=== PATIENT | female | born 1985 | race American Indian/Alaskan Native ===

== ENCOUNTER 2017-03-17 13:27 | Emergency (ER) | payer MEDICAID ==
[2017-03-17 14:23] VITALS: BP 109/77
[2017-03-17 14:42] LABS: Bilirubin,Urine NEG (Negative); Blood,Urine SM (Negative); Ketones,Urine NEG (Negative); Leukocyte Esterase,Urine NEG (Negative); Mucus,Urine FEW /HPF; Nitrite,Urine NEG (Negative); Protein,Urine <15 mg/dL mg/dL (Negative); RBC,Urine < 1.0 /HPF (0.0-6.0); Urobilinogen,Urine < 2.0 mg/dL (<2.0)
[2017-03-17] MEDS ORDERED: MOTRIN PO ONE (16:40)
--- NOTE | 2017-03-17 16:44 | Emergency Department Report ---
ED General Adult HPI - General Chief complaint: Abdominal Pain Stated complaint: ABD PAIN Time Seen by Provider: 03/17/17 16:27 Source: patient Mode of arrival: Ambulatory Limitations: No Limitations - History of Present Illness Initial comments: PT c/o abd pain x 2 weeks. pt states the abd pain is lower and feels like period cramps, but she missed her last cycle. PT states 2 days after missing her cycle, she had negative home test. PT states that she is concerned that she may be . PT is sexually active and does not use condoms consistently. PT denies dysuria and vaginal discharge. PT denies recent hx of STD or any hx of PID. PT does have a hx of breast CA. Complaint: abd pain Onset/Timin -: Gradual, week(s) Location: abdomen Severity scale (0 -10): 5 Quality: other (crampy ) Consistency: constant Improves with: none Worsens with: none Associated Symptoms: loss of appetite. denies: chest pain, cough, fever/chills , nausea/vomiting - Related Data Home Medications Medication Instructions Recorded Confirmed Last Taken Antibiotic Name Unknown 01/25/15 01/25/15 Unknown Previous Rx's Medication Instructions Recorded Last Taken Type Ondansetron [Zofran TAB] 4 mg PO Q8HR PRN #20 tablet 06/21/15 Unknown Rx oxyCODONE /ACETAMINOPHEN [Percocet 1 - 2 tab PO Q6HR PRN #20 tablet 06/21/15 Unknown Rx 5/325 mg] Sulfamethoxazole/Trimethoprim 1 each PO BID #20 tablet 03/18/16 Unknown Rx [Bactrim DS TAB] Benzonatate [Tessalon Perles] 100 mg PO Q8HR #10 capsule 10/28/16 Unknown Rx Cetirizine HCl [ZyrTEC] 10 mg PO DAILY #30 capsule 10/28/16 Unknown Rx Ibuprofen [Motrin 800 MG tab] 1 tab PO Q8HR PRN #30 tablet 10/28/16 Unknown Rx Allergies Allergy/AdvReac Type Severity Reaction Status Date / Time nalbuphine HCl [From Nubain] Allergy Unknown Verified 10/25/14 19:15 ED Review of Systems ROS: Stated complaint: ABD PAIN Other details as noted in HPI Comment: All other systems reviewed and negative Constitutional: denies: chills, fever Respiratory: denies: cough Cardiovascular: denies: chest pain Gastrointestinal: abdominal pain Genitourinary: abnormal menses. denies: dysuria, frequency, discharge Neurological: other (pt states that if she does not eat, she will feel light headed but symptoms improve with eating. ). denies: headache, vertigo ED Past Medical Hx - Past Medical History Previous Medical History?: Yes Hx Hypertension: No Hx Heart Attack/AMI: No Hx Congestive Heart Failure: No Hx Diabetes: No Hx GERD: Yes (stomach ulcers) Hx Liver Disease: No Hx Renal Disease: No Hx of Cancer: Yes (Breast CA DX 2013 ) Hx Seizures: No Hx Asthma: No Hx COPD: No Additional medical history: stomach ulcer, Vaginal delivery x 1 - Surgical History Past Surgical History?: Yes Hx Breast Surgery: Yes (Gilberto. breast) Additional Surgical History: MASTECTOMY. x 1 - Social History Smoking Status: Current Every Day Smoker Substance Use Type: None - Medications Home Medications: Home Medications Medication Instructions Recorded Confirmed Last Taken Type Antibiotic Name Unknown 01/25/15 01/25/15 Unknown History Ondansetron [Zofran TAB] 4 mg PO Q8HR PRN #20 tablet 06/21/15 Unknown Rx oxyCODONE /ACETAMINOPHEN [Percocet 1 - 2 tab PO Q6HR PRN #20 tablet 06/21/15 Unknown Rx 5/325 mg] Sulfamethoxazole/Trimethoprim 1 each PO BID #20 tablet 03/18/16 Unknown Rx [Bactrim DS TAB] Benzonatate [Tessalon Perles] 100 mg PO Q8HR #10 capsule 10/28/16 Unknown Rx Cetirizine HCl [ZyrTEC] 10 mg PO DAILY #30 capsule 10/28/16 Unknown Rx Ibuprofen [Motrin 800 MG tab] 1 tab PO Q8HR PRN #30 tablet 10/28/16 Unknown Rx ED Physical Exam - General Limitations: No Limitations General appearance: alert, in no apparent distress - Head Head exam: Present: atraumatic, normocephalic, normal inspection - Eye Eye exam: Present: normal appearance, PERRL, EOMI. Absent: conjunctival injection - ENT ENT exam: Present: normal exam, normal external ear exam - Neck Neck exam: Present: normal inspection, full ROM - Respiratory Respiratory exam: Present: normal lung sounds bilaterally. Absent: respiratory distress, wheezes, chest wall tenderness - Cardiovascular Cardiovascular Exam: Present: regular rate, normal rhythm, normal heart sounds - GI/Abdominal GI/Abdominal exam: Present: soft, normal bowel sounds. Absent: distended, tenderness - Extremities Exam Extremities exam: Present: normal inspection, full ROM - Back Exam Back exam: Present: normal inspection, full ROM. Absent: tenderness, CVA tenderness (R), CVA tenderness (L), muscle spasm, paraspinal tenderness, vertebral tenderness - Neurological Exam Neurological exam: Present: alert, oriented X3, normal gait - Psychiatric Psychiatric exam: Present: normal affect, normal mood - Skin Skin exam: Present: warm, dry, intact, normal color ED Course Vital Signs 03/17/17 14:20 Temperature 98.2 F Pulse Rate 61 Respiratory 18 Rate Blood Pressure 109/77 O2 Sat by Pulse 100 Oximetry - Reevaluation(s) Reevaluation #1: 03/17/17 16:45 PT aware of UA and test results. PT gives verbal consent for pelvic exam. Reevaluation #2: 03/17/17 18:31 PT no longer in her room, pt not in US. Assumed pt left after learning of negative test. - Pulse Oximetry Interpretation Digit-Finger Initial Pulse Oximetry Readin Actions Taken: none ED Medical Decision Making - Differential Diagnosis , uti, pid, cervicitis, ovarian cyst Critical care attestation.: If time is entered above; I have spent that time in minutes in the direct care of this critically ill patient, excluding procedure time. ED Disposition Clinical Impression: Amenorrhea, Lower abdominal pain Disposition: ELOPED Is pt being admited?: No Condition: Undetermined Time of Disposition: 18:33
== END 2017-03-17 17:00 | disposition left against medical advice (07) ==
LOC: ED 13:27
DX: N91.2 Amenorrhea, unspecified (principal); R10.30 Lower abdominal pain, unspecified; K21.9 Gastro-esophageal reflux disease without esophagitis; F17.200 Nicotine dependence, unspecified, uncomplicated; Z85.3 Personal history of malignant neoplasm of breast; Z88.8 Allergy status to other drugs, medicaments and biological substances
CPT/HCPCS: 81001; 81025; 99283

== ENCOUNTER 2017-08-15 13:47 | Outpatient (CLI) | payer OTHER ==
--- NOTE | 2017-08-19 09:28 | Ultrasound Report ---
Sonogram right and left breast: History:N69.9/N64.4 Findings: Bilaterally symmetric expanders are identified with fluid. No debris is found. No solid masses noted. Deformity of the anterior aspect of right and left drill rig operator is probably related to scar tissue. Focal area of fluid collection anterior to the left drill rig operator is probably normal or seroma. Impression: Findings as detailed above. Clinical correlation and if necessary followup or MRI may be advised.
== END 2017-08-15 13:48 | disposition home or self-care (01) ==
LOC: US 13:47
DX: N64.4 Mastodynia (principal)

== ENCOUNTER 2017-10-16 09:36 | Outpatient (CLI) | payer OTHER ==
--- NOTE | 2017-10-16 18:01 | XRay Report ---
FINAL REPORT EXAM: XR SPINE LUMBOSACRAL 2-3V HISTORY: LUMBAR SACRAL PAIN,BREAST CANCER,BONE PAIN TECHNIQUE: AP pelvis, cervical, thoracic, and lumbosacral spine series were performed Four view cervical spine, three views thoracic spine, three views lumbar spine, AP pelvis FINDINGS: Normal alignment of the cervical vertebral bodies. C1 lateral masses align normally on C2. Odontoid is incompletely assessed. There are no focal bony lytic or blastic lesions. Left chemo port. Normal alignment of the thoracic vertebral bodies. Minimal scoliosis. Pedicles are intact. Normal paraspinal line. The imaged lungs are unremarkable. Lumbar vertebral bodies are normally aligned. Disc spaces are maintained. No focal lytic or blastic lesions of the thoracic or lumbar spine. Incidental identified S1 posterior fusion defect. Well corticated left transverse process bone chip measuring 12 millimeters at the L1 vertebral bodies appears chronic. SI joints are. Sacral arches are intact. No focal lytic or blastic lesion of the bony pelvis. Mild right SI joint lipping. IMPRESSION: No focal bony lesion to suggest metastatic disease. Recommend correlation with bone scan.
--- NOTE | 2017-10-16 18:04 | XRay Report ---
FINAL REPORT EXAM: XR SPINE THORACIC 2V No focal bony lesion to suggest metastatic disease. Recommend correlation with bone scan. HISTORY: BACK PAIN,BREAST CANCER,BONE METS TECHNIQUE: AP pelvis, cervical, thoracic, and lumbosacral spine series were performed Four view cervical spine, three views thoracic spine, three views lumbar spine, AP pelvis FINDINGS: Normal alignment of the cervical vertebral bodies. C1 lateral masses align normally on C2. Odontoid is incompletely assessed. There are no focal bony lytic or blastic lesions. Left chemo port. Normal alignment of the thoracic vertebral bodies. Minimal scoliosis. Pedicles are intact. Normal paraspinal line. The imaged lungs are unremarkable. Lumbar vertebral bodies are normally aligned. Disc spaces are maintained. No focal lytic or blastic lesions of the thoracic or lumbar spine. Incidental identified S1 posterior fusion defect. Well corticated left transverse process bone chip measuring 12 millimeters at the L1 vertebral bodies appears chronic. SI joints are. Sacral arches are intact. No focal lytic or blastic lesion of the bony pelvis. Mild right SI joint lipping. IMPRESSION: No focal bony lesion to suggest metastatic disease. Recommend correlation with bone scan.
--- NOTE | 2017-10-16 18:04 | XRay Report ---
FINAL REPORT EXAM: XR SPINE CERVICAL 2-3V HISTORY: NECK PAIN,BREAST CANCER,BONE METS TECHNIQUE: AP pelvis, cervical, thoracic, and lumbosacral spine series were performed Four view cervical spine, three views thoracic spine, three views lumbar spine, AP pelvis FINDINGS: Normal alignment of the cervical vertebral bodies. C1 lateral masses align normally on C2. Odontoid is incompletely assessed. There are no focal bony lytic or blastic lesions. Left chemo port. Normal alignment of the thoracic vertebral bodies. Minimal scoliosis. Pedicles are intact. Normal paraspinal line. The imaged lungs are unremarkable. Lumbar vertebral bodies are normally aligned. Disc spaces are maintained. No focal lytic or blastic lesions of the thoracic or lumbar spine. Incidental identified S1 posterior fusion defect. Well corticated left transverse process bone chip measuring 12 millimeters at the L1 vertebral bodies appears chronic. SI joints are. Sacral arches are intact. No focal lytic or blastic lesion of the bony pelvis. Mild right SI joint lipping. IMPRESSION: No focal bony lesion to suggest metastatic disease. Recommend correlation with bone scan
--- NOTE | 2017-10-17 07:55 | Nuclear Medicine Report ---
BONE SCAN: History: Lumbosacral pain, breast cancer. Comparison: Bone scan dated 07/19/14. X-rays of the C-spine, T-spine, L-spine and pelvis performed 10/16/17. After injection of isotope, gamma camera imaging of the bony system was done. There is a normal uptake of isotope throughout the bony structures without areas of significantly increased or decreased uptake. Normal uptake in the urinary system is seen. IMPRESSION: Unremarkable bone scan. No evidence for trauma, significant degenerative uptake or metastatic disease.
== END 2017-10-16 09:37 | disposition home or self-care (01) ==
LOC: NM 09:36
DX: C50.911 Malignant neoplasm of unspecified site of right female breast (principal); M41.82 Other forms of scoliosis, cervical region; M54.5 Low back pain; M54.6 Pain in thoracic spine
CPT/HCPCS: 72040; 72070; 72100; 72170; 78306; 81025; A9503

== ENCOUNTER 2018-03-26 09:14 | Day surgery (SDC) | payer OTHER ==
[~2018-03-26 09:14] MED LIST: ANCEF/STERILE WATER 2 GM/20 ML IV NR; LACTATED RINGERS 1,000 ML IV SCH
[2018-03-26] MEDS ORDERED: NACL BACTERIOSTATIC INFILTRATI ONE (10:19)
--- NOTE | 2018-03-26 10:21 | Anesthesia Day of Surgery ---
Anesthesia Day of Surgery - Day of Surgery Patient Examined: Yes Patient H&P Reviewed: Yes Patient is NPO: Yes
--- NOTE | 2018-03-26 10:22 | Anesthesia Consultation ---
Anesthesia Consult and Med Hx Date of service: 03/26/18 - Airway Anesthetic Teeth Evaluation: Good ROM Head & Neck: Adequate Mental/Hyoid Distance: Adequate Mallampati Class: Class I Intubation Access Assessment: Good - Cardiac Exam Cardiac Exam: RRR - Pre-Operative Health Status ASA Pre-Surgery Classification: ASA2 Proposed Anesthetic Plan: General - Pulmonary Hx Smoking: Yes (CIGARETTES , 1/2 PPD ) Hx Asthma: No COPD: No Hx Pneumonia: No Hx Sleep Apnea: No - Cardiovascular System Hx Hypertension: No Hx Coronary Artery Disease: No Hx Heart Attack/AMI: No Hx Angina: No - Central Nervous System Hx Seizures: No CVA: No Hx Back Pain: Yes (scoliosis) Hx Psychiatric Problems: No - Gastrointestinal Hx Ulcer: Yes (PUD) - Endocrine Hx Renal Disease: No Hx End Stage Renal Disease: No Hx Liver Disease: No Hx Non-Insulin Dependent Diabetes: No - Hematic Hx Anemia: No - Other Systems Hx Alcohol Use: No Hx Cancer: Yes
[2018-03-26] MEDS ORDERED: XYLOCAINE 1%/ EPI 1:100,000 INFILTRATI ONE ×4 (10:24→11:51)
[2018-03-26] MEDS ORDERED: MARCAINE 0.25% INFILTRATI ONE ×4 (10:24→11:51)
[2018-03-26] MEDS ORDERED: DIPRIVAN 10 MG/ML IV ONE ×2 (10:32→11:52)
[2018-03-26] MEDS ORDERED: XYLOCAINE CARDIAC IV ONE (10:32)
[2018-03-26] MEDS ORDERED: VERSED IV NR (11:00)
[2018-03-26] MEDS ORDERED: DILAUDID ONE (11:40)
[2018-03-26] MEDS ORDERED: NACL 0.9% IR ONE (12:00)
[2018-03-26] MEDS ORDERED: DEMEROL IV PRN (12:10)
[2018-03-26] MEDS ORDERED: ZOFRAN IV PRN (12:10)
[2018-03-26] MEDS ORDERED: DILAUDID IV PRN (12:10)
--- NOTE | 2018-03-26 12:19 | Discharge Summary ---
Short Stay Discharge Plan Activity: no restrictions Diet: regular Wound: open to air, other (use ice pack off and on today; may shower in 2 days) Special Instructions: other (Tylenol or Motrin as needed for pain) Follow up with: PRIMARY CAREMD [Primary Care Provider] - 7 Days MAXWELL KELLY MD [Staff Physician] - 7 Days
--- NOTE | 2018-03-26 12:21 | Post Operative Note ---
Date of procedure: 03/26/18 Pre-op diagnosis: port no longer required; malfunctioning port Post-op diagnosis: same Findings: tip removed intact Procedure: removal of vascular access port Anesthesia: MAC Surgeon: MAXWELL KELLY Estimated blood loss: none Pathology: none Specimen disposition: discarded Condition: stable Disposition: PACU
--- NOTE | 2018-03-26 12:49 | Operative Report ---
PREOPERATIVE DIAGNOSES: Malfunctioning port, port no longer required. POSTOPERATIVE DIAGNOSES: Malfunctioning port, port no longer required. PROCEDURE: Removal of vascular access port. TYPE OF ANESTHESIA: Local MAC. SURGEON: Shayla Lindsay MD [facility] NURSE PSYCHOTHERAPIST: None. ESTIMATED BLOOD LOSS: None. INDICATIONS: This is a 32-year-old woman who had a vascular access port on the left internal jugular vein and the dome sitting on the left chest wall for chemotherapy for breast cancer. She no longer requires a port and wishes to have it removed. FINDINGS: The tip was removed intact. DESCRIPTION OF PROCEDURE: The patient was brought to the operating room, laid supine on the table. After adequate IV sedation was obtained, the left neck and chest wall were prepped and draped in usual fashion. Initially 1:1 mixture of 0.25% Marcaine and 1% lidocaine was infiltrated in a field block anesthesia fashion along the vascular access port in the left chest wall. The previous incision was then incised. Dissection was carried down. The catheter was visualized, grasped, and removed intact from the neck. Next, the dome was freed using blunt dissection. The sutures were snipped. They were holding it in place and the dome was removed as well. Hemostasis was ascertained. Wound was irrigated. The subcutaneous tissues were reapproximated using 3-0 Vicryl and skin was reapproximated using 4-0 Monocryl in running subcuticular fashion. The wound was dressed with skin glue. The patient tolerated the procedure. There were no immediate complications. All counts reported as correct. JOB# [id number] BOBBY/JEFERSON
[2018-03-26] MEDS ORDERED: BENADRYL IV SCH (12:55)
[2018-03-26 14:06] VITALS: BP 101/68
--- NOTE | 2018-03-26 18:25 | Post Anesthesia Evaluation ---
- Post Anesthesia Evaluation Patient Participated: Yes Airway Patent: Yes Stable Respiratory Function: Yes Nausea/Vomiting: No Temp > 96.8F: Yes Pain Manageable: Yes Adequeate Hydration: Yes Anesthesia Complications: No
== END 2018-03-26 13:50 | disposition home or self-care (01) ==
LOC: OR 09:14
PROVIDERS: ATTEND Surgery
DX: Z45.2 Encounter for adjustment and management of vascular access device (principal); K27.9 Peptic ulcer, site unspecified, unspecified as acute or chronic, without hemorrhage or perforation; F17.210 Nicotine dependence, cigarettes, uncomplicated; F32.9 Major depressive disorder, single episode, unspecified; Z85.3 Personal history of malignant neoplasm of breast; Z92.21 Personal history of antineoplastic chemotherapy; Z98.890 Other specified postprocedural states; Z90.13 Acquired absence of bilateral breasts and nipples
CPT/HCPCS: 36590; 81025; J0690; J1170; J1200; J2001; J2250; J2704; J7120

== ENCOUNTER 2021-07-07 16:19 | Emergency (ER) | payer SELFPAY ==
[2021-07-07 17:12] VITALS: BP 103/63
--- NOTE | 2021-07-07 18:21 | Emergency Department Report ---
ED General Adult HPI - General Chief complaint: Urogenital-Female Stated complaint: CHEST PAIN/BREAST EX MOVING TO CHEST Time Seen by Provider: 07/07/21 18:12 Source: patient Mode of arrival: Ambulatory Limitations: No Limitations - History of Present Illness Initial comments: pt is a 36-year-old female presents emergency room complaints of left-sided b reast pain and left-sided chest pain that began a week ago. Patient states that she has had breast project finance analyst present on this side for approximately 7 years. She states 7 years ago she had a double mastectomy. She states that she was supposed to have an implant placed but due to insurance loss she was unable to have this performed and she still has project finance analyst in. She states that she also completed radiation therapy and chemotherapy. She states that she has been in remission for 5 years. He states that she has not seen her breast surgeon in over a year. She states that she is also been having some mild chills. she denies any fever, nausea, vomiting, diarrhea, leg swelling, shortness of breath, pleuritic pain. She has not been vaccinated for COVID-19. Past medical history. She has an allergy to nalbuphine - Related Data Previous Rx's Medication Instructions Recorded Last Taken Type Ondansetron [Zofran TAB] 4 mg PO Q8HR PRN #20 tablet 06/21/15 3 Weeks Ago Rx ~03/05/18 oxyCODONE /ACETAMINOPHEN [Percocet 1 - 2 tab PO Q6HR PRN #20 tablet 06/21/15 3 Weeks Ago Rx 5/325 mg] ~03/05/18 Naproxen 375 mg PO BID PRN #20 tablet 07/07/21 Unknown Rx traMADoL [Ultram 50 MG tab] 50 mg PO Q6HR PRN #12 tablet 07/07/21 Unknown Rx Allergies Allergy/AdvReac Type Severity Reaction Status Date / Time nalbuphine HCl [From Nubain] Allergy Unknown Verified 10/25/14 19:15 ED Review of Systems ROS: Stated complaint: CHEST PAIN/BREAST EX MOVING TO CHEST Other details as noted in HPI Comment: All other systems reviewed and negative ED Past Medical Hx - Past Medical History Previous Medical History?: Yes Hx Hypertension: No Hx Heart Attack/AMI: No Hx Congestive Heart Failure: No Hx Diabetes: No Hx GERD: Yes (stomach ulcers) Hx Liver Disease: No Hx Renal Disease: No Hx Seizures: No Hx Asthma: No Hx COPD: No Additional medical history: stomach ulcer, Vaginal delivery x 1 - Surgical History Past Surgical History?: Yes Hx Breast Surgery: Yes (BILATERAL BREAST RECONSTRUCTION SURGERY) Additional Surgical History: MASTECTOMY. x 1 - Social History Smoking Status: Never Smoker Substance Use Type: None - Medications Home Medications: Home Medications Medication Instructions Recorded Confirmed Last Taken Type Ondansetron [Zofran TAB] 4 mg PO Q8HR PRN #20 tablet 06/21/15 03/26/18 3 Weeks Ago Rx ~03/05/18 oxyCODONE /ACETAMINOPHEN [Percocet 1 - 2 tab PO Q6HR PRN #20 tablet 06/21/15 03/26/18 3 Weeks Ago Rx 5/325 mg] ~03/05/18 Naproxen 375 mg PO BID PRN #20 tablet 07/07/21 Unknown Rx traMADoL [Ultram 50 MG tab] 50 mg PO Q6HR PRN #12 tablet 07/07/21 Unknown Rx ED Physical Exam - General Limitations: No Limitations General appearance: alert, in no apparent distress - Head Head exam: Present: atraumatic, normocephalic - Eye Eye exam: Present: normal appearance - ENT ENT exam: Present: mucous membranes moist - Respiratory Respiratory exam: Present: normal lung sounds bilaterally, chest wall tenderness (mild ttp to the left medial chest wall where an project finance analyst is present, no erythema, no edema, no increased warmth, manager electrical: Dr. Vizcarra). Absent: respiratory distress, wheezes, rales, rhonchi, stridor, accessory muscle use, decreased breath sounds, prolonged expiratory - Cardiovascular Cardiovascular Exam: Present: regular rate, normal rhythm, normal heart sounds. Absent: systolic murmur, diastolic murmur, rubs, gallop - Neurological Exam Neurological exam: Present: alert, oriented X3 - Psychiatric Psychiatric exam: Present: normal affect, normal mood - Skin Skin exam: Present: warm, dry, intact ED Course Vital Signs 07/07/21 17:00 Temperature 99.0 F Pulse Rate 92 H Respiratory 16 Rate Blood Pressure 103/63 O2 Sat by Pulse 96 Oximetry ED Medical Decision Making - Lab Data Result diagrams: 07/07/21 18:48 07/07/21 18:48 Lab Results 07/07/21 07/07/21 07/07/21 Range/Units 18:48 18:48 18:48 WBC 5.4 (4.5-11.0) K/mm3 RBC 4.04 (3.65-5.03) M/mm3 Hgb 13.5 (10.1-14.3) gm/dl Hct 39.9 (30.3-42.9) % MCV 99 H (79-97) fl MCH 33 H (28-32) pg MCHC 34 (30-34) % RDW 14.0 (13.2-15.2) % Plt Count 187 (140-440) K/mm3 Lymph % (Auto) 40.7 H (13.4-35.0) % [place] % (Auto) 7.3 (0.0-7.3) % Eos % (Auto) 0.9 (0.0-4.3) % Baso % (Auto) 0.5 (0.0-1.8) % Lymph # (Auto) 2.2 (1.2-5.4) K/mm3 [place] # (Auto) 0.4 (0.0-0.8) K/mm3 Eos # (Auto) 0.0 (0.0-0.4) K/mm3 Baso # (Auto) 0.0 (0.0-0.1) K/mm3 Seg Neutrophils % 50.6 (40.0-70.0) % Seg Neutrophils # 2.7 (1.8-7.7) K/mm3 D-Dimer 175.12 (0-234) ng/mlDDU Sodium 135 L (137-145) mmol/L Potassium 4.0 (3.6-5.0) mmol/L Chloride 99.9 (98-107) mmol/L Carbon Dioxide 29 (22-30) mmol/L Anion Gap 10 mmol/L BUN 9 (7-17) mg/dL Creatinine 0.7 (0.6-1.2) mg/dL Estimated GFR > 60 ml/min BUN/Creatinine Ratio 13 % Glucose 77 (65-100) mg/dL Calcium 9.4 (8.4-10.2) mg/dL Total Bilirubin < 0.20 (0.1-1.2) mg/dL AST 13 (5-40) units/L ALT 7 (7-56) units/L Alkaline Phosphatase 73 (35-129) units/L Troponin T < 0.010 (0.00-0.029) ng/mL Total Protein 7.3 (6.3-8.2) g/dL Albumin 4.3 (3.9-5) g/dL Albumin/Globulin Ratio 1.4 % HCG, Quant (0-4) mIU/mL 07/07/21 Range/Units 18:48 WBC (4.5-11.0) K/mm3 RBC (3.65-5.03) M/mm3 Hgb (10.1-14.3) gm/dl Hct (30.3-42.9) % MCV (79-97) fl MCH (28-32) pg MCHC (30-34) % RDW (13.2-15.2) % Plt Count (140-440) K/mm3 Lymph % (Auto) (13.4-35.0) % [place] % (Auto) (0.0-7.3) % Eos % (Auto) (0.0-4.3) % Baso % (Auto) (0.0-1.8) % Lymph # (Auto) (1.2-5.4) K/mm3 [place] # (Auto) (0.0-0.8) K/mm3 Eos # (Auto) (0.0-0.4) K/mm3 Baso # (Auto) (0.0-0.1) K/mm3 Seg Neutrophils % (40.0-70.0) % Seg Neutrophils # (1.8-7.7) K/mm3 D-Dimer (0-234) ng/mlDDU Sodium (137-145) mmol/L Potassium (3.6-5.0) mmol/L Chloride (98-107) mmol/L Carbon Dioxide (22-30) mmol/L Anion Gap mmol/L BUN (7-17) mg/dL Creatinine (0.6-1.2) mg/dL Estimated GFR ml/min BUN/Creatinine Ratio % Glucose (65-100) mg/dL Calcium (8.4-10.2) mg/dL Total Bilirubin (0.1-1.2) mg/dL AST (5-40) units/L ALT (7-56) units/L Alkaline Phosphatase (35-129) units/L Troponin T (0.00-0.029) ng/mL Total Protein (6.3-8.2) g/dL Albumin (3.9-5) g/dL Albumin/Globulin Ratio % HCG, Quant < 2 (0-4) mIU/mL - EKG Data EKG shows normal: sinus rhythm, axis, intervals, QRS complexes Rate: normal - EKG Data 07/07/21 20:14 ST elevation likely from normal early repolarization No STEMI Reviewed by Dr. Carmita MD - Radiology Data Radiology results: report reviewed Ordering Physician: SARANYA DOMINIQUE Date of Service: 07/07/21 Procedure(s): XR chest routine 2V Accession Number(s): [id number] cc: SARANYA DOMINIQUE Fluoro Time In Minutes: CHEST 2 VIEWS INDICATION / CLINICAL INFORMATION: CP. COMPARISON: None available. FINDINGS: SUPPORT DEVICES: None. HEART / MEDIASTINUM: No significant abnormality. LUNGS / PLEURA: No significant pulmonary or pleural abnormality. No pneumothorax. ADDITIONAL FINDINGS: Bilateral breast expanders IMPRESSION: 1. No acute findings. Signer Name: Chino Gunn MD Signed: 07/07/2021 7:09 PM Workstation Name: [id number] Transcribed By: TL Dictated By: Chino Gunn MD Electronically Authenticated By: Chino Gunn MD Signed Date/Time: 07/07/211908 DD/ 07 TD/TT: Print - Medical Decision Making pt is a 36-year-old female presents emergency room complaints of left-sided breast pain and left-sided chest pain that began a week ago. Patient states that she has had breast project finance analyst present on this side for approximately 7 years. She states 7 years ago she had a double mastectomy. She states that she was supposed to have an implant placed but due to insurance loss she was unable to have this performed and she still has project finance analyst in. She states that she also completed radiation therapy and chemotherapy. She states that she has been in remission for 5 years. He states that she has not seen her breast surgeon in over a year. She states that she is also been having some mild chills. she de nies any fever, nausea, vomiting, diarrhea, leg swelling, shortness of breath, pleuritic pain. She has not been vaccinated for COVID-19. Past medical history. She has an allergy to nalbuphine. Vitals are normal. On exam:mild ttp to the left medial chest wall where an project finance analyst is present, no erythema, no edema, no increased warmth, manager electrical: Dr. Vizcarra. No signs of cellulitis or abscess. EKG with ST elevation likely from normal early repolarization, otherwise normal. Labs are normal. hCG is negative. Troponin is negative. D- dimer is negative. Heart score is 1, low risk for cardiac event. Patient is not having pleuritic pain, shortness of breath, leg swelling, tachycardia, hypo neva, D-dimer is negative, patient is low risk based on Wells criteria for PE, PE unlikely. Patient given prescription for medications. Advised patient Please take medication as prescribed as needed. Follow-up with a primary care doctor. Follow-up with a blocker and polisher gold wheel. Follow-up with a breast surgeon. Return to emergency room for any new or worsening symptoms. Critical care attestation.: If time is entered above; I have spent that time in minutes in the direct care of this critically ill patient, excluding procedure time. ED Disposition Clinical Impression: Breast pain Chest pain Qualifiers: Chest pain type: unspecified Qualified Code(s): R07.9 - Chest pain, unspecified Disposition: 01 HOME / SELF CARE / HOMELESS Is pt being admited?: No Does the pt Need Aspirin: No Condition: Stable Instructions: Nonspecific Chest Pain, Adult Additional Instructions: Please take medication as prescribed as needed. Follow-up with a primary care doctor. Follow-up with a blocker and polisher gold wheel. Follow-up with a breast surgeon. Return to emergency room for any new or worsening symptoms. Prescriptions: Naproxen 375 mg PO BID PRN #20 tablet PRN Reason: pain traMADoL [Ultram 50 MG tab] 50 mg PO Q6HR PRN #12 tablet PRN Reason: Pain , Severe (7-10) Referrals: PRIMARY CARE, [Primary Care Provider] - 3-5 Days GURINDER LEIJA MD [Staff Physician] - 3-5 Days [facility] [Provider Group] - 3-5 Days GLENROY BLACK MD [Staff Physician] - 3-5 Days [facility] [Staff Physician] - 3-5 Days Time of Disposition: 20:15 HEART Score - HEART Score History: Slightly suspicious EKG: Non-specific Age: < 45 Risk factors: No known risk factors Troponin: Troponin T < 0.010 ng/mL (0.00-0.029) 07/07/21 18:48 Troponin: < normal limit HEART Score: 1
--- NOTE | 2021-07-07 18:23 | Event Note ---
Date of service: 07/07/21 Face to Face: For this encounter I have reviewed the PA/HOUSING ASSISTANT PROPERTY MANAGER documentation, treatment plan, medical decision making, and I had face to face time with this patient. The patient was evaluated in the emergency department for symptoms described in the history of present illness. He/she was evaluated in the context of the global COVID-19 pandemic, which necessitated consideration that the patient might be at risk for infection with the virus that causes COVID-19. Institutional protocols and algorithms that pertain to the evaluation of patients at risk for COVID-19 are in a state of rapid change based on information released by regulatory bodies including the CDC and federal and state organizations. These policies and algorithms were followed during the patient's care in the emergency department. Please note that these policies, procedures and recommendations changed on a rapid basis. The patient is a 36-year-old female, with a distant history of breast cancer, status postmastectomy, with subsequent expanders, who has not been able to follow-up with outpatient breast surgery secondary to lack of insurance, who presents to the ER today with a complaint of 1 week of central chest pain, and possible breast sap hana architect discomfort. On external examination, while chaperoned by physician assistant front desk manager warren, no redness, pus or streaking. The patient states no vomiting, diaphoresis, Or exertional shortness of breath, but does complain of nonspecific chest pain and malaise. She also reports that she is not received a COVID-19 vaccination. Denies personal/family history of DVT, PE, and coronary artery disease. This may be a component of reproducible chest wall pain/costochondritis/discomfort secondary to expanders. However, when asked to localize her pain, the patient indicated her sternum. Symptoms present for approximately 7 days, therefore, if one troponin is negative, acute myocardial infarction may be ruled out as per the [employer] clinical policy. Plan is to treat the patient's pain, obtain EKG x1, x-ray the chest, troponin, D-dimer, if necessary, obtain CT scan of the chest. Reassess after initial data points. Have discussed this plan of care with the physician assistant front desk manager. Presuming unremarkable EKG, normal troponin, we would consider this patient to be low risk for major adverse cardiac event, she can follow-up with an outpatient primary care doctor and/or oracle business intelligence developer for her chest pain, and she will be referred to our local breast surgery specialists
--- NOTE | 2021-07-07 19:13 | XRay Report ---
CHEST 2 VIEWS INDICATION / CLINICAL INFORMATION: CP. COMPARISON: None available. FINDINGS: SUPPORT DEVICES: None. HEART / MEDIASTINUM: No significant abnormality. LUNGS / PLEURA: No significant pulmonary or pleural abnormality. No pneumothorax. ADDITIONAL FINDINGS: Bilateral breast expanders IMPRESSION: 1. No acute findings. Signer Name: Chino Gunn MD Signed: 07/07/2021 7:09 PM Workstation Name: [id number]
[2021-07-07 19:34] LABS: Basophils % (Auto) 0.5 % (0.0-1.8); Eosinophils % (Auto) 0.9 % (0.0-4.3); Hematocrit 39.9 % (30.3-42.9); Hemoglobin 13.5 gm/dl (10.1-14.3); Lymphocytes # (Auto) 2.2 K/mm3 (1.2-5.4); Lymphocytes % (Auto) 40.7 % (13.4-35.0); Mean Corpuscular HGB Conc 34 % (30-34); Mean Corpuscular Volume 99 fl (79-97); Monocytes # (Auto) 0.4 K/mm3 (0.0-0.8); Monocytes % (Auto) 7.3 % (0.0-7.3); Platelet Count 187 K/mm3 (140-440); Red Blood Count 4.04 M/mm3 (3.65-5.03)
[2021-07-07 19:39] LABS: Alanine Aminotransferase 7 units/L (7-56); Albumin 4.3 g/dL (3.9-5); Blood Urea Nitrogen 9 mg/dL (7-17); Calcium 9.4 mg/dL (8.4-10.2); Hemolysis Index 6
[2021-07-07 19:46] LABS: BUN/Creatinine Ratio 13
--- NOTE | 2021-07-10 08:50 | Electrocardiograph Report ---
[facility] Test Date: 2021-07-07 Test Time: 18:32:33 Pat Name: EILEEN TORREZ Department: Room: Gender: F Insolvency Consultant: DEVON : 1985 Requested By: ILENE ESTES Order Number: [id number] Reading MD: Kobe Espinoza Measurements Intervals [place] Rate: 64 P: 79 AL: 189 QRS: 77 QRSD: 74 T: 68 QT: 382 QTc: 393 Interpretive Statements Sinus rhythm BORDERLINE ST Elevation No previous ECG available for comparison Electronically Signed On 07-10-2021 8:50:33 EDT by Kobe Espinoza
== END 2021-07-07 20:21 | disposition home or self-care (01) ==
LOC: ED 16:19
DX: N64.4 Mastodynia (principal); R07.89 Other chest pain; K21.9 Gastro-esophageal reflux disease without esophagitis; Z98.890 Other specified postprocedural states; Z79.899 Other long term (current) drug therapy; Z88.8 Allergy status to other drugs, medicaments and biological substances
CPT/HCPCS: 36415; 71046; 80053; 84484; 84702; 85025; 85379; 93005; 99283